=== PATIENT | male | born 1990 | race Caucasian/White ===

== ENCOUNTER 2017-05-26 22:36 | Inpatient (IN) | payer OTHER ==
[~2017-05-26] VITALS: Ht 175.3 cm; Wt 67.1 kg
[2017-05-27 02:44] VITALS: BP 116/77
[2017-05-27 07:44] VITALS: BP 116/60
[2017-05-27 15:13] VITALS: BP 119/76
[2017-05-27 15:42] VITALS: BP 137/75
[2017-05-28 07:24] VITALS: BP 114/75
[2017-05-28 16:03] VITALS: BP 154/87
[2017-05-28 18:24] VITALS: BP 109/63
[2017-05-29 07:57] VITALS: BP 102/49
[2017-05-29 16:42] VITALS: BP 117/63
[2017-05-30 07:45] VITALS: BP 101/58
[2017-05-30] MEDS ORDERED: EFFEXOR37.5 MG PO (09:12)
== END 2017-05-30 14:26 | disposition other institution (70) | DRG 885 ==
LOC: 1WEST 22:36 → ENRESERV 22:37 → 1WEST 22:43
DX: F33.9 Major depressive disorder, recurrent, unspecified (principal); R45.851 Suicidal ideations; F11.20 Opioid dependence, uncomplicated; F41.1 Generalized anxiety disorder; F10.20 Alcohol dependence, uncomplicated; Z81.1 Family history of alcohol abuse and dependence; Z81.8 Family history of other mental and behavioral disorders
CPT/HCPCS: 71046; 97150 GO; 97165 GO; Q0177

== ENCOUNTER 2017-07-15 07:28 | Emergency (ER) | payer OTHER ==
[~2017-07-15] VITALS: Ht 175.3 cm; Wt 72.9 kg
[~2017-07-15 07:28] MED LIST: EFFEXOR37.5 MG PO
[2017-07-15] MEDS ORDERED: NEURONTIN300 MG PO (09:02)
[2017-07-15 09:13] VITALS: BP 133/74
== END 2017-07-15 09:14 | disposition home or self-care (01) ==
LOC: EME 07:28
DX: M79.602 Pain in left arm (principal); G89.29 Other chronic pain; Z76.0 Encounter for issue of repeat prescription; F11.11 Opioid abuse, in remission; F31.9 Bipolar disorder, unspecified
CPT/HCPCS: 99281; 99282